=== PATIENT | female | born 1945 | race Caucasian/White ===

== ENCOUNTER → 2018-11-20 | Outpatient (CLI) | payer MEDICARE, OTHER ==
--- NOTE | 2018-11-20 17:00 | XR ---
EXAMINATION TYPE: XR chest 2V DATE OF EXAM: 11/20/2018 COMPARISON: None HISTORY: 73-year-old female with cough TECHNIQUE: Frontal and lateral views FINDINGS: Heart is normal in size. Atherosclerotic calcifications. Hyperinflation with mild diffuse interstitia l prominence. There is subtle nodularity of the right mid lung that could represent summation artifac t. Some patchy posterior basilar opacity is also noted on the lateral view. No sizable effusion. IMPRESSION: 1. COPD. There is patchy posterior basilar opacity on the lateral view that could represent atelectas is or developing pneumonia. 2. Small area of nodularity right mid lung, summation artifact versus small pulmonary nodule. Contras t-enhanced CT chest in further evaluate.
== END | disposition home or self-care (01) ==
LOC: RADXRYALE 15:13
PROVIDERS: ATTEND Physician Assistant Medical
DX: J44.9 Chronic obstructive pulmonary disease, unspecified (principal); R91.8 Other nonspecific abnormal finding of lung field
CPT/HCPCS: 71046

== ENCOUNTER → 2018-12-07 | Outpatient (CLI) | payer MEDICARE, OTHER ==
--- NOTE | 2018-12-07 15:54 | CT ---
EXAMINATION TYPE: CT chest w con DATE OF EXAM: 12/07/2018 COMPARISON: Chest x-ray dated 11/20/2018 HISTORY: Solitary pulmonary nodule. CT DLP: 109.9 mGycm. Automated Exposure Control for Dose Reduction was Utilized. TECHNIQUE: CT scan of the thorax is performed following with IV Contrast, patient injected with 80ml mL of Isovue 300. FINDINGS: LUNGS: There is mild emphysematous changes at the lung apices. There is no suspicious pulmonary nodul e or mass seen. There are scattered benign calcified granulomas within the right midlung on series 4 image 28 and 29. There is mild airspace disease in the right middle lobe with cylindrical bronchiecta sis and subtle groundglass opacity. Lingular and middle lobe bandlike pleural parenchymal scarring is noted. Punctate noncalcified 2 mm pulmonary nodule in the anterior left upper lobe on series 4 image 20 is seen. Additional calcified granuloma within the left upper lobe is present on image 27 on the left. Additional left basilar granulomas margin image 31. There is no pleural effusion or pneumothor ax seen. The tracheobronchial tree is patent. MEDIASTINUM: There are no greater than 1 cm hilar or mediastinal lymph nodes. No pericardial effusi on is seen. Moderate to severe atherosclerosis of the aortic arch and of the coronary arteries. Punc gregory hilar granulomas are benign. OTHER: On series 3 image 73 there is partial visualization of a right renal mass seen anterior latera lly that is concerning for neoplasm although only partially visualized. Pancreatic ductal prominence is seen throughout. Pancreatic head is not visualized. Remainder the pancreas enhances homogeneously. Mild degree hepatic steatosis is present as there is diffuse hypoattenuation of the hepatic parenchy ma, limiting evaluation for underlying masses. Severe atherosclerosis of the upper abdominal aorta. Minimal degenerative change of the spine and nonspecific sclerotic focus of L1. IMPRESSION: 1. On the last image, within the visualized upper abdomen there is partial visualization of a suspici ous right renal mass for which three-phase enhanced CT abdomen is recommended to exclude neoplasm. 2. Benign bilateral granulomas, likely accounting for the right midlung finding. However there is a n oncalcified 2 mm left pulmonary nodule that may represent early noncalcified granulomatous change how ever surveillance CT is recommended in 12 months to ensure no interval growth. 3. Patchy right middle lobe airspace disease likely represents atelectasis although early developing pneumonia is a possibility in the appropriate clinical setting.
== END | disposition home or self-care (01) ==
LOC: RADCTMAIN 14:00
PROVIDERS: ATTEND Family Medicine
DX: R91.1 Solitary pulmonary nodule (principal); J84.10 Pulmonary fibrosis, unspecified; J44.9 Chronic obstructive pulmonary disease, unspecified; F17.210 Nicotine dependence, cigarettes, uncomplicated; Z01.812 Encounter for preprocedural laboratory examination
CPT/HCPCS: 82565; 84520; 71260; 36415; Q9967

== ENCOUNTER → 2018-12-25 | Outpatient (CLI) | payer MEDICARE, OTHER ==
--- NOTE | 2018-12-26 08:26 | MM ---
Reason for exam: screening (asymptomatic). Last mammogram was performed 2 months ago. Physical Findings: A clinical breast exam by your physician is recommended on an annual basis and results should be correlated with mammographic findings. MG 3D Screening Mammo W/Cad Bilateral CC and MLO view(s) were taken. Prior study comparison: October 28, 2018, mammogram, performed at [facility]. The breast tissue is extremely dense which could obscure a lesion on mammography. There are benign appearing vascular calcifications bilaterally. There is no discrete abnormality. ASSESSMENT: Benign, BI-RAD 2 RECOMMENDATION: Routine screening mammogram of both breasts in 1 year.
== END | disposition home or self-care (01) ==
LOC: RADMAMWWP 07:51
PROVIDERS: ATTEND Family Medicine
DX: Z12.31 Encounter for screening mammogram for malignant neoplasm of breast (principal)
CPT/HCPCS: 77063; 77067

== ENCOUNTER → 2018-12-28 | Outpatient (CLI) | payer MEDICARE, OTHER ==
--- NOTE | 2018-12-28 12:25 | CT ---
EXAMINATION TYPE: CT abdomen pelvis w con DATE OF EXAM: 12/28/2018 COMPARISON: CT chest 12/07/2018 HISTORY: Abdnormal findings on Chest CT CT DLP: 338.9 mGycm Automated exposure control for dose reduction was used. CONTRAST: CT scan of the abdomen pelvis is performed with IV Contrast, patient injected with 100 mL of Isovue 3 00. FINDINGS- LUNG BASES-changes of mild COPD noted.. LIVER/GB- No gross abnormality is appreciated. PANCREAS- No gross abnormality is seen. SPLEEN- No gross abnormality is seen. ADRENALS- No gross abnormality is seen. KIDNEYS/BLADDER-there is a suspicious 2.3 x 2.5 cm anterior mid pole right renal mass. No hydronephro sis. No nephrolithiasis.. No involvement of the renal vein. BOWEL- no bowel dilatation. Normal appendix. LYMPH NODES- No greater than 1cm abdominal or pelvic lymph nodes areappreciated. OSSEOUS STRUCTURES-hypertrophic and degenerative changes spine. OTHER- atherosclerotic change aorta. No evidence of aneurysm. IMPRESSION- 1. Aggressive-appearing 2.3 x 2.5 cm mid pole right renal mass. No pathologic adenopathy. Renal carci noma in the differential diagnosis.
== END | disposition home or self-care (01) ==
LOC: RADCTMAIN 10:22
PROVIDERS: ATTEND Physician Assistant Medical
DX: Z01.818 Encounter for other preprocedural examination (principal); C64.9 Malignant neoplasm of unspecified kidney, except renal pelvis; N28.89 Other specified disorders of kidney and ureter; R93.41 Abnormal radiologic findings on diagnostic imaging of renal pelvis, ureter, or bladder
CPT/HCPCS: 82565; 84520; 74177; 36415; Q9967

== ENCOUNTER 2019-01-24 10:35 | Inpatient (IN) | payer MEDICARE, OTHER ==
[2019-01-24] MEDS ORDERED: SODIUM CHLORIDE 0.9% 1,000 ML IV STA ×2 (11:03)
--- NOTE | 2019-01-24 11:10 | ED ---
General Adult HPI - General Chief complaint: Weakness Stated complaint: weakness, vomiting Time Seen by Provider: 01/24/19 10:43 Source: patient, RN notes reviewed, old records reviewed Mode of arrival: wheelchair Limitations: no limitations - History of Present Illness Initial comments: 73-year-old female with a history of renal carcinoma who is scheduled to undergo right nephrectomy in 1-month-old presents emergency department today for evaluation for generalized weakness fatigue. Patient reportedly has had a cough for the past few days. Patient's daughter reports that she is scheduled to go to see her PCP today for upper a story congestion, but then Patient started to feel weak, lightheaded and had almost a fall due to weak legs so the daughter sent her in. Patient reportedly has had some chronic back pain associated with renal carcinoma but denies any fall or trauma to her lower back. Patient denies any fevers or chills. She denies any headache visual changes. She has no chest pain at this time. - Related Data Home Medications Medication Instructions Recorded Confirmed Ascorbic Acid [Vitamin C] 500 mg PO DAILY 01/24/19 01/24/19 Cholecalciferol [Vitamin D3 (25 1,000 unit PO DAILY 01/24/19 01/24/19 Mcg = 1000 Iu)] Hydrochlorothiazide [Hydrodiuril] 25 mg PO DAILY 01/24/19 01/24/19 Vitamin B Complex 1 cap PO DAILY 01/24/19 01/24/19 Allergies Allergy/AdvReac Type Severity Reaction Status Date / Time No Known Allergies Allergy Verified 01/24/19 11:15 Review of Systems ROS Statement: Those systems with pertinent positive or pertinent negative responses have been documented in the HPI. ROS Other: All systems not noted in ROS Statement are negative. Past Medical History Past Medical History: Hypertension Additional Past Medical History / Comment(s): MASS ON RIGHT KIDNEY History of Any Multi-Drug Resistant Organisms: None Reported Past Surgical History: Hysterectomy Past Psychological History: No Psychological Hx Reported Smoking Status: Current every day smoker Past Alcohol Use History: Occasional Past Drug Use History: None Reported General Exam - General Exam Comments Initial Comments: Pleasant 73-year-old female. No significant distress. Limitations: no limitations General appearance: alert, in no apparent distress Head exam: Present: atraumatic, normocephalic, normal inspection Eye exam: Present: normal appearance, PERRL, EOMI. Absent: scleral icterus, conjunctival injection, periorbital swelling ENT exam: Present: normal exam, mucous membranes moist Neck exam: Present: normal inspection. Absent: tenderness, meningismus, lymphadenopathy Respiratory exam: Present: normal lung sounds bilaterally. Absent: respiratory distress, wheezes, rales, rhonchi, stridor Cardiovascular Exam: Present: regular rate, normal rhythm, normal heart sounds. Absent: systolic murmur, diastolic murmur, rubs, gallop, clicks GI/Abdominal exam: Present: soft, normal bowel sounds. Absent: distended, tenderness, guarding, rebound, rigid Extremities exam: Present: normal inspection, full ROM, normal capillary refill. Absent: tenderness, pedal edema, joint swelling, calf tenderness Back exam: Present: normal inspection Psychiatric exam: Present: normal affect, normal mood Skin exam: Present: warm, dry, intact, normal color. Absent: rash Course Vital Signs 01/24/19 01/24/19 10:38 13:00 Temperature 98.2 F Pulse Rate 66 61 Respiratory 16 18 Rate Blood Pressure 162/76 161/55 O2 Sat by Pulse 98 98 Oximetry Medical Decision Making - Medical Decision Making Patient is a 73-year-old female who presents emergency Department today for g eneralized weakness, concern for falls and leg weakness. Patient was started on IV fluids labwork obtained. On exam she has had a 5 strength bilaterally. Patient's lab work was reviewed showing evidence of hyponatremia. Sodium of 125. The rest of her labs are unremarkable. At this time patient's scheduled to have a right nephrectomy with Dr. Ashley in the next few weeks. Urinalysis is otherwise remarkable kidney function was normal. With the hyponatremia Patient was given saline bolus and started on 100 mL's of saline an hour. She does report she likely does not drink enough. I discussed this with Dr. Tang. For patient's weakness fatigue and sodium of 125 [place] the Patient for further evaluation. - Lab Data Result diagrams: 01/24/19 11:08 01/24/19 11:08 Lab Results 01/24/19 01/24/19 01/24/19 Range/Units 11:08 11:08 11:08 WBC 7.3 (3.8-10.6) k/uL RBC 3.56 L (3.80-5.40) m/uL Hgb 12.6 (11.4-16.0) gm/dL Hct 35.3 (34.0-46.0) % MCV 99.3 (80.0-100.0) fL MCH 35.3 H (25.0-35.0) pg MCHC 35.5 (31.0-37.0) g/dL RDW 13.7 (11.5-15.5) % Plt Count 254 (150-450) k/uL Neutrophils % 70 % Lymphocytes % 19 % Monocytes % 8 % Eosinophils % 1 % Basophils % 0 % Neutrophils # 5.1 (1.3-7.7) k/uL Lymphocytes # 1.4 (1.0-4.8) k/uL Monocytes # 0.6 (0-1.0) k/uL Eosinophils # 0.0 (0-0.7) k/uL Basophils # 0.0 (0-0.2) k/uL PT (9.0-12.0) sec INR (<1.2) APTT (22.0-30.0) sec Sodium 125 L (137-145) mmol/L Potassium 3.5 (3.5-5.1) mmol/L Chloride 86 L (98-107) mmol/L Carbon Dioxide 28 (22-30) mmol/L Anion Gap 11 mmol/L BUN 11 (7-17) mg/dL Creatinine 0.59 (0.52-1.04) mg/dL Est GFR (CKD-EPI)AfAm >90 (>60 ml/min/1.73 sqM) Est GFR (CKD-EPI)NonAf >90 (>60 ml/min/1.73 sqM) Glucose 112 H (74-99) mg/dL Plasma Lactic Acid Cody 1.1 (0.7-2.0) mmol/L Calcium 8.9 (8.4-10.2) mg/dL Magnesium 2.0 (1.6-2.3) mg/dL Total Bilirubin 1.1 (0.2-1.3) mg/dL AST 24 (14-36) U/L ALT 20 (9-52) U/L Alkaline Phosphatase 74 (38-126) U/L Troponin I (0.000-0.034) ng/mL Total Protein 7.0 (6.3-8.2) g/dL Albumin 4.3 (3.5-5.0) g/dL Urine Color Urine Appearance (Clear) Urine pH (5.0-8.0) Ur Specific [place] (1.001-1.035) Urine Protein (Negative) Urine Glucose (UA) (Negative) Urine Ketones (Negative) Urine Blood (Negative) Urine Nitrite (Negative) Urine Bilirubin (Negative) Urine Urobilinogen (<2.0) mg/dL Ur Leukocyte Esterase (Negative) 01/24/19 01/24/19 01/24/19 Range/Units 11:08 11:08 11:44 WBC (3.8-10.6) k/uL RBC (3.80-5.40) m/uL Hgb (11.4-16.0) gm/dL Hct (34.0-46.0) % MCV (80.0-100.0) fL MCH (25.0-35.0) pg MCHC (31.0-37.0) g/dL RDW (11.5-15.5) % Plt Count (150-450) k/uL Neutrophils % % Lymphocytes % % Monocytes % % Eosinophils % % Basophils % % Neutrophils # (1.3-7.7) k/uL Lymphocytes # (1.0-4.8) k/uL Monocytes # (0-1.0) k/uL Eosinophils # (0-0.7) k/uL Basophils # (0-0.2) k/uL PT 9.5 (9.0-12.0) sec INR 0.9 (<1.2) APTT 27.6 (22.0-30.0) sec Sodium (137-145) mmol/L Potassium (3.5-5.1) mmol/L Chloride (98-107) mmol/L Carbon Dioxide (22-30) mmol/L Anion Gap mmol/L BUN (7-17) mg/dL Creatinine (0.52-1.04) mg/dL Est GFR (CKD-EPI)AfAm (>60 ml/min/1.73 sqM) Est GFR (CKD-EPI)NonAf (>60 ml/min/1.73 sqM) Glucose (74-99) mg/dL Plasma Lactic Acid Cody (0.7-2.0) mmol/L Calcium (8.4-10.2) mg/dL Magnesium (1.6-2.3) mg/dL Total Bilirubin (0.2-1.3) mg/dL AST (14-36) U/L ALT (9-52) U/L Alkaline Phosphatase (38-126) U/L Troponin I <0.012 (0.000-0.034) ng/mL Total Protein (6.3-8.2) g/dL Albumin (3.5-5.0) g/dL Urine Color Light Yellow Urine Appearance Clear (Clear) Urine pH 6.0 (5.0-8.0) Ur Specific [place] 1.005 (1.001-1.035) Urine Protein Negative (Negative) Urine Glucose (UA) Negative (Negative) Urine Ketones Negative (Negative) Urine Blood Negative (Negative) Urine Nitrite Negative (Negative) Urine Bilirubin Negative (Negative) Urine Urobilinogen <2.0 (<2.0) mg/dL Ur Leukocyte Esterase Negative (Negative) 01/24/19 11:15 EKG shows normal sinus rhythm normal EKG. Ventricular rate 81 bpm. Verbal is 156 ms. Frustration is 96 ms. QT QTc is 464/467 ms. - Radiology Data Radiology results: report reviewed Chest x-ray is negative for any acute pulmonary process. Suspected nodularity the right lung base. Follow-up CT of the chest was Patient is stable. Disposition Clinical Impression: Hyponatremia, Weakness Disposition: ADMITTED IP TO THIS HOSP Condition: Good Is patient prescribed a controlled substance at d/c from ED?: No Referrals: Tanmay Schwarz DO [Primary Care Provider] - 1-2 days Time of Disposition: 13:38
[2019-01-24 11:30] LABS: Basophils % (A) 0 %; Eosinophils % (A) 1 %; HCT 35.3 % (34.0-46.0); HGB 12.6 gm/dL (11.4-16.0); Lymphocytes # (A) 1.4 k/uL (1.0-4.8); Lymphocytes % (A) 19 %; MCH 35.3 pg (25.0-35.0); MCHC 35.5 g/dL (31.0-37.0); MCV 99.3 fL (80.0-100.0); Mean Platelet Volume 7.1; Monocytes # (A) 0.6 k/uL (0-1.0); Monocytes % (A) 8 %; Neutrophils # (A) 5.1 k/uL (1.3-7.7); Neutrophils % (A) 70 %; Platelet Count 254 k/uL (150-450); RBC 3.56 m/uL (3.80-5.40); RDW 13.7 % (11.5-15.5); WBC 7.3 k/uL (3.8-10.6)
--- NOTE | 2019-01-24 11:32 | XR ---
EXAMINATION TYPE: XR chest 2V DATE OF EXAM: 01/24/2019 COMPARISON: 11/20/2018 INDICATION: Weakness lower extremities TECHNIQUE: Frontal and lateral views of the chest are obtained. FINDINGS: The heart size is normal. The pulmonary vasculature is normal. Bilateral nipple shadows are evident. Superior-medial is a nodular density at the right lung base ivette suring 0.7 cm. This area does not correspond to the previous finding in November 2018. Consider CT chest f or additional evaluation.. IMPRESSION: 1. No obvious acute pulmonary process. 2. Suspected nodularity at the right lung base. Follow-up CT chest in the patient is stable is recomm ended.
[2019-01-24 11:35] LABS: ALT 20 U/L (9-52); AST 24 U/L (14-36); African American GFR (CKD) >90 (>60 ml/min/1.73 sqM); Albumin 4.3 g/dL (3.5-5.0); Alkaline Phosphatase 74 U/L (38-126); Anion Gap 11 mmol/L; Blood Urea Nitrogen 11 mg/dL (7-17); Calcium 8.9 mg/dL (8.4-10.2); Carbon Dioxide 28 mmol/L (22-30); Chloride 86 mmol/L (98-107); Glucose 112 mg/dL (74-99); Potassium 3.5 mmol/L (3.5-5.1); Sodium 125 mmol/L (137-145); Total Bilirubin 1.1 mg/dL (0.2-1.3)
[2019-01-24 11:40] LABS: INR 0.9 (<1.2); Partial Thromboplastin Time 27.6 sec (22.0-30.0); Prothrombin Time 9.5 sec (9.0-12.0)
[2019-01-24 12:00] LABS: Appearance,Urine Clear (Clear); Bilirubin,Urine Negative (Negative); Blood,Urine Negative (Negative); Color,Urine Light Yellow; Glucose,Urine (UA) Negative (Negative); Ketones,Urine Negative (Negative); Leukocyte Esterase,Urine Negative (Negative); Nitrite,Urine Negative (Negative); Protein,Urine Negative (Negative); Specific Gravity,Urine 1.005 (1.001-1.035); Urobilinogen,Urine <2.0 mg/dL (<2.0)
[2019-01-24] MEDS ORDERED: MORPHINE SULFATE 4 MG/ML SYRINGE IV PRN (13:39)
[2019-01-24] MEDS ORDERED: IBUPROFEN 400 MG TAB PO PRN (13:39)
[2019-01-24] MEDS ORDERED: ONDANSETRON 4 MG/2 ML VIAL IVP PRN (13:39)
[2019-01-24] MEDS ORDERED: NALOXONE 0.4 MG/ML 1 ML VIAL IV PRN (13:39)
[2019-01-24] MEDS ORDERED: ACETAMINOPHEN TAB 325 MG TAB PO PRN (13:39)
[2019-01-24] MEDS ORDERED: Acetaminophen-Codeine 300-30mg TAB PO PRN (13:39)
--- NOTE | 2019-01-24 15:20 | P.HPIM ---
History of Present Illness Chief Complaint: Weakness and dizziness This very pleasant 73-year-old female who is scheduled to undergo right nephrec derick on of this month comes in for above-mentioned complaint. The patient says that she recently came back from [place] she said that she's been walking a lot and traveling a lot on foot. She walked a lot yesterday. She started feeling weak and pain in her legs and felt lightheaded and dizzy. The daughter just wanted to get it checked out so the patient came into the ER for further urology management. The patient says that she is probably not keeping up with her fluids as much as she needs to. She otherwise does not complain of any chest pain racing heart, no cough no shortness breath, no abdominal pain, nausea and vomiting, no diarrhea constipation, no tingling numbness on in the extremities, no itch no rash. Next ER course-temperature 98.2 pulse 66 respirations 16 blood pressure 162/76 satting 98% on room air. Labwork done in the ER showed WAC 7.3 hemoglobin 12.6 platelets 254 sodium 144 potassium 3.5 chloride 86 BUN 11 creatinine 0.59 GFR more than 90 urinalysis is negative. Chest x-ray done in the ER showed no acute bony process but suspect or nodularity and suggested follow-up CAT scan. EKG shows normal sinus rhythm. Patient was given IV fluids and admitted to the hospitalist service a further evaluation and management. Review of Systems All systems: negative Past Medical History Past Medical History: Hypertension Additional Past Medical History / Comment(s): MASS ON RIGHT KIDNEY History of Any Multi-Drug Resistant Organisms: None Reported Past Surgical History: Hysterectomy Past Psychological History: No Psychological Hx Reported Smoking Status: Current every day smoker Past Alcohol Use History: Occasional Past Drug Use History: None Reported Medications and Allergies Home Medications Medication Instructions Recorded Confirmed Type Ascorbic Acid [Vitamin C] 500 mg PO DAILY 01/24/19 01/24/19 History Cholecalciferol [Vitamin D3 (25 1,000 unit PO DAILY 01/24/19 01/24/19 History Mcg = 1000 Iu)] Hydrochlorothiazide [Hydrodiuril] 25 mg PO DAILY 01/24/19 01/24/19 History Vitamin B Complex 1 cap PO DAILY 01/24/19 01/24/19 History Allergies Allergy/AdvReac Type Severity Reaction Status Date / Time No Known Allergies Allergy Verified 01/24/19 11:15 Physical Exam Vitals: Vital Signs Temp Pulse Resp BP Pulse Ox 01/24/19 13:00 61 18 161/55 98 01/24/19 10:38 98.2 F 66 16 162/76 98 Intake and Output 01/24/19 01/24/19 01/24/19 06:59 14:59 22:59 Other: Weight 49.895 kg - Weakness - Hyponatremia - History of renal mass patient undergo nephrectomy - Hypertension - Hyperlipidemia - Diabetes Plan - We'll admit the patient to [facility] telemetry under observation - We'll continue IV fluids - The patient looks like she is little bit dehydrated as she was in [place] and was not keeping up with the fluids - We'll recheck the labs in the morning - We'll continue the patient's home medications - DVT and GI prophylaxis - We'll order for lab work in the morning - Patient is full code Results CBC & Chem 7: 01/24/19 11:08 01/24/19 11:08 Labs: Abnormal Lab Results - Last 24 Hours (Table) 01/24/19 01/24/19 Range/Units 11:08 11:08 RBC 3.56 L (3.80-5.40) m/uL MCH 35.3 H (25.0-35.0) pg Sodium 125 L (137-145) mmol/L Chloride 86 L (98-107) mmol/L Glucose 112 H (74-99) mg/dL
[2019-01-24 15:29] VITALS: BMI 18.8
[2019-01-24] MEDS: SODIUM CHLORIDE 0.9% 1,000 ML IV SCH (16:54)
[2019-01-25 00:13] VITALS: RESP 18
[2019-01-25] MEDS: SODIUM CHLORIDE 0.9% 1,000 ML IV SCH ×2 (00:28→07:44)
[2019-01-25 01:59] LABS: Creatinine,Urine Random 22.8 mg/dL
[2019-01-25 05:46] VITALS: BP 155/74; PULSE 63; TEMP 98.4
[2019-01-25 08:06] LABS: HCT 33.5 % (34.0-46.0); HGB 11.2 gm/dL (11.4-16.0); MCH 34.3 pg (25.0-35.0); MCHC 33.5 g/dL (31.0-37.0); MCV 102.6 fL (80.0-100.0); Macrocytosis Slight; Mean Platelet Volume 6.6; Platelet Count 240 k/uL (150-450); RBC 3.26 m/uL (3.80-5.40); RDW 12.4 % (11.5-15.5); WBC 6.9 k/uL (3.8-10.6)
[2019-01-25 08:32] LABS: African American GFR (CKD) >90 (>60 ml/min/1.73 sqM); Anion Gap 6 mmol/L; Blood Urea Nitrogen 7 mg/dL (7-17); Calcium 8.4 mg/dL (8.4-10.2); Carbon Dioxide 30 mmol/L (22-30); Chloride 96 mmol/L (98-107); Glucose 96 mg/dL (74-99); Potassium 3.4 mmol/L (3.5-5.1); Sodium 132 mmol/L (137-145)
[2019-01-25] MEDS ORDERED: HYDROCHLOROTHIAZIDE 25 MG TAB PO SCH (09:00)
[2019-01-25] MEDS ORDERED: NON-FORMULARY DRUG (Vitamin B Complex [Vitamin B Complex] 1 CAP) PO SCH (09:00)
[2019-01-25] MEDS ORDERED: PANTOPRAZOLE 40 MG/10 ML VIAL IV SCH (09:00)
[2019-01-25] MEDS ORDERED: CHOLECALCIFEROL 1,000 UNIT TAB PO SCH (09:00)
[2019-01-25] MEDS ORDERED: ASCORBIC ACID 500 MG TAB PO SCH (09:00)
--- NOTE | 2019-01-25 10:38 | P.DS ---
Providers Date of admission: 01/24/19 13:03 Expected date of discharge: 01/25/19 Attending physician: Mundo Bates [facility] Course: Discharge diagnosis - Weakness - Hyponatremia - History of renal mass patient undergo nephrectomy - Hypertension - Hyperlipidemia - Diabetes Hospital course This very pleasant 73-year-old female who is scheduled to undergo right nephrectomy on of this month comes in for above-mentioned complaint. The patient says that she recently came back from [place] she said that she's been walking a lot and traveling a lot on foot. She walked a lot yesterday. She s tarted feeling weak and pain in her legs and felt lightheaded and dizzy. The daughter just wanted to get it checked out so the patient came into the ER for further urology management. The patient says that she is probably not keeping up with her fluids as much as she needs to. She otherwise does not complain of any chest pain racing heart, no cough no shortness breath, no abdominal pain, nausea and vomiting, no diarrhea constipation, no tingling numbness on in the extremities, no itch no rash. On 01/25/2019 Her sodium level is almost back to normal at 132 She is feeling much better, no lightheadedness no dizziness, no chest pain or racing heart, no cough no shortness of breath no headache, no loss of vision or blurry vision On exam, alert and oriented x3. HEENT: Conjunctivae normal. eyes normal. NECK: No JVD. No thyroid enlargement. No LNs CARDIOVASCULAR: S1, S2 muffled. No murmur RESPIRATION: Breath sounds diminished in the bases. No rhonchi or crackles. No bronchial breathing. ABDOMEN: Soft, nontender . No guarding. no masses palpable. No ascites, No hepatosplenomegaly.Bowel sounds heard. LEGS: No edema. no swelling NERVOUS SYSTEM: Cranial N 2-12 grossly normal. Moves all 4 limbs. No focal deficits. No sensory deficit. No signs of cerebellar dysfucntion. Skin: no ulcer no rash Joints: No active swelling. No inflammation. Lymphatic system. No LN neck axilla or groin. Patient's HCTZ is on hold as she came in with hyponatremia and possible dehydration. Her blood pressure was slightly on the higher side so she was started on Norvasc 5 mg daily from now. Patient to follow with the primary care doctor to see hydrochlorothiazide needs to be continued ON hold and adjusting the blood pressure medication in accordance with the blood pressure Patient Condition at Discharge: Good Plan - Discharge Summary Discharge Rx Participant: No New Discharge Prescriptions: Continue Vitamin B Complex 1 cap PO DAILY Cholecalciferol [Vitamin D3 (25 Mcg = 1000 Iu)] 1,000 unit PO DAILY Ascorbic Acid [Vitamin C] 500 mg PO DAILY Discontinued Hydrochlorothiazide [Hydrodiuril] 25 mg PO DAILY Discharge Medication List Ascorbic Acid [Vitamin C] 500 mg PO DAILY 01/24/19 [History] Cholecalciferol [Vitamin D3 (25 Mcg = 1000 Iu)] 1,000 unit PO DAILY 01/24/19 [History] Vitamin B Complex 1 cap PO DAILY 01/24/19 [History] Follow up Appointment(s)/Referral(s): Tanmay Schwarz DO [Primary Care Provider] - 1-2 days Ambulatory/Diagnostic Orders: Basic Metabolic Panel [LAB.AMB] Time Frame: 2 Days, Location: None Selected Activity/Diet/Wound Care/Special Instructions: If she started to have any more lightheadedness or dizziness, any loss of vision or blurry vision, any syncopal episodes, any chest pain racing heart, cough or shortness of breath, no abdominal pain, any nausea vomiting, any diarrhea constipation, any loss of vision or blurry vision, please call 911 and come to the ER Please hold off on the hydrochlorothiazide. Follow up with your primary care doctor to see if it needs to be restarted back or substituted with another blood pressure medication Discharge Disposition: HOME SELF-CARE
[2019-01-25] MEDS ORDERED: amLODIPine 5 MG TAB PO STA (10:39)
== END 2019-01-25 11:01 | disposition home or self-care (01) | DRG 641 ==
LOC: EC 10:35 → 4MS4W 13:03
PROVIDERS: ADMIT Hospitalist; ATTEND Hospitalist
DX: E87.1 Hypo-osmolality and hyponatremia (principal); C64.9 Malignant neoplasm of unspecified kidney, except renal pelvis; E86.0 Dehydration; E11.9 Type 2 diabetes mellitus without complications; E78.5 Hyperlipidemia, unspecified; R53.1 Weakness; F17.200 Nicotine dependence, unspecified, uncomplicated; I10 Essential (primary) hypertension; G89.3 Neoplasm related pain (acute) (chronic); Z79.899 Other long term (current) drug therapy; Z90.710 Acquired absence of both cervix and uterus
CPT/HCPCS: 36415; 71046; 80048; 80053; 81003; 82570; 83605; 83735; 83930; 83935; 84300; 84484; 85025; 85027; 85610; 85730; 87086; 93005; 96360; 96361; 99285

== ENCOUNTER → 2019-01-31 | Outpatient (CLI) | payer MEDICARE, OTHER ==
[2019-01-31 10:38] LABS: Basophils % (A) 1 %; Eosinophils # (A) 0.1 k/uL (0-0.7); Eosinophils % (A) 1 %; HCT 38.6 % (34.0-46.0); HGB 12.3 gm/dL (11.4-16.0); Lymphocytes # (A) 1.7 k/uL (1.0-4.8); Lymphocytes % (A) 27 %; MCH 33.3 pg (25.0-35.0); MCHC 31.9 g/dL (31.0-37.0); MCV 104.6 fL (80.0-100.0); Macrocytosis Slight; Mean Platelet Volume 6.7; Monocytes # (A) 0.4 k/uL (0-1.0); Monocytes % (A) 6 %; Neutrophils % (A) 63 %; Platelet Count 376 k/uL (150-450); RBC 3.69 m/uL (3.80-5.40); RDW 12.5 % (11.5-15.5); WBC 6.3 k/uL (3.8-10.6)
[2019-01-31 11:07] LABS: Albumin 4.2 g/dL (3.5-5.0); Calcium 9.6 mg/dL (8.4-10.2); Total Bilirubin 0.4 mg/dL (0.2-1.3); Total Protein 6.8 g/dL (6.3-8.2)
[2019-01-31 11:09] LABS: Appearance,Urine Clear (Clear); Bilirubin,Urine Negative (Negative); Blood,Urine Negative (Negative); Color,Urine Yellow; Glucose,Urine (UA) Negative (Negative); Ketones,Urine Negative (Negative); Leukocyte Esterase,Urine Negative (Negative); Nitrite,Urine Negative (Negative); PH, Urine 5.5 (5.0-8.0); Protein,Urine Negative (Negative); Specific Gravity,Urine 1.012 (1.001-1.035); Urobilinogen,Urine <2.0 mg/dL (<2.0)
== END | disposition home or self-care (01) ==
LOC: LABPAT 10:12
PROVIDERS: ATTEND Urology
DX: Z01.812 Encounter for preprocedural laboratory examination (principal); C64.1 Malignant neoplasm of right kidney, except renal pelvis
CPT/HCPCS: 36415; 80053; 81003; 85025; 87086

== ENCOUNTER 2019-02-07 05:59 | Inpatient (IN) | payer MEDICARE, OTHER ==
--- NOTE | 2019-02-06 06:58 | P.GSHP ---
History of Present Illness H&P Date: 02/06/19 73 yo female with a 3.5 cm deep right renal mass c/w renal cell carcinoma found on ct scan done for f/u of her copd,who comes for a right radical nephrectomy Alternatives have been discussed The risks and complications have been discussed - Constitutional Constitutional: Denies chills, Denies fever - EENT Eyes: denies blurred vision, denies pain Ears, nose, mouth and throat: Denies headache, Denies sore throat - Cardiovascular Cardiovascular: Denies chest pain, Denies shortness of breath - Respiratory Respiratory: Denies cough, Denies 7 - Gastrointestinal Gastrointestinal: Denies abdominal pain, Denies diarrhea, Denies nausea, Denies vomiting - Genitourinary (Female) Genitourinary: Denies dysuria, Denies hematuria - Genitourinary (Male) Genitourinary: Denies dysuria, Denies hematuria - Musculoskeletal Musculoskeletal: Denies myalgias - Integumentary Integumentary: Denies pruritus, Denies rash - Neurological Neurological: Denies numbness, Denies weakness - Psychiatric Psychiatric: Denies anxiety, Denies depression - Endocrine Endocrine: Denies fatigue, Denies weight change Past Medical History Past Medical History: Hypertension Additional Past Medical History / Comment(s): RIGHT RENAL MASS History of Any Multi-Drug Resistant Organisms: None Reported Past Surgical History: Hysterectomy Past Anesthesia/Blood Transfusion Reactions: No Reported Reaction Past Psychological History: No Psychological Hx Reported Smoking Status: Current every day smoker Past Alcohol Use History: Occasional Additional Past Alcohol Use History / Comment(s): 1ppd from teens, Past Drug Use History: None Reported - Past Family History Mother Additional Family Medical History / Comment(s): KIDNEY MASS Father Family Medical History: Cancer Additional Family Medical History / Comment(s): LUNG Sister(s) Family Medical History: Cancer Additional Family Medical History / Comment(s): KIDNEY Medications and Allergies Home Medications Medication Instructions Recorded Confirmed Type Ascorbic Acid [Vitamin C] 500 mg PO DAILY 01/24/19 02/02/19 History Cholecalciferol [Vitamin D3 (25 1,000 unit PO DAILY 01/24/19 02/02/19 History Mcg = 1000 Iu)] Vitamin B Complex 1 cap PO DAILY 01/24/19 02/02/19 History [place]-3 Fatty Acids/Fish Oil [Fish 1 each PO DAILY 02/02/19 02/02/19 History Oil 1,000 mg Softgel] amLODIPine [Norvasc] 5 mg PO QAM 02/02/19 02/02/19 History Allergies Allergy/AdvReac Type Severity Reaction Status Date / Time No Known Allergies Allergy Verified 02/02/19 08:44 Surgical - Exam - General well developed, well nourished, no distress - Eyes PERRL - ENT no hearing loss - Neck no masses, trachea midline - Respiratory normal expansion, normal respiratory effort - Cardiovascular Rhythm: regular - Abdomen Abdomen: soft, non tender - Neurologic normal coordination, normal sensation - Musculoskeletal normal gait, normal posture - Psychiatric oriented to time, oriented to person, oriented to place, speech is normal, memory intact Results - Imaging CT scan - abdomen: report reviewed, image reviewed CT scan - pelvis: report reviewed, image reviewed Assessment and Plan Assessment: Impression: Right renal mass c/w renal cell carcinoma Plan: RIght radical nephrectomy
[~2019-02-07 05:59] MED LIST: DEXAMETHASONE SOD PHOSPHATE 10 MG/ML 1 ML VIAL IV ONE; HYDROmorphone 0.5 MG/0.5 ML SYRINGE IVP PRN; LIDOCAINE 1% 20 ML VIAL (10MG/ML) FOR IV START INTRADERMA PRN; ONDANSETRON 4 MG/2 ML VIAL IVP ONE; ONDANSETRON 4 MG/2 ML VIAL IVP PRN
[2019-02-07] MEDS: LACTATED RINGERS 1,000 ML IV SCH (06:48)
[2019-02-07] MEDS ORDERED: MIDAZOLAM (PF) 2 MG/2 ML VIAL IV ONE (07:02)
[2019-02-07] MEDS ORDERED: LIDOCAINE 1% INJ 10MG/ML (20 ML MDV) ONE (07:18)
[2019-02-07] MEDS ORDERED: SUCCINYLCHOLINE CHLORIDE 100 MG/5 ML SYR IV ONE (07:18)
[2019-02-07] MEDS ORDERED: ROCURONIUM BROMIDE 10 MG/ML 10 ML VIAL IV ONE (07:18)
[2019-02-07] MEDS ORDERED: fentaNYL (PF) 50 MCG/ML 2 ML AMP ONE (07:18)
[2019-02-07] MEDS ORDERED: PROPOFOL 10 MG/ML 20 ML VIAL IV ONE (07:18)
[2019-02-07] MEDS ORDERED: PHENYLEPHRINE-0.9% NACL SYG 1 MG/10 ML SYRINGE ONE (07:18)
[2019-02-07] MEDS ORDERED: ePHEDrine SULFATE/0.9% NACL/PF 50 MG/5 ML SYRINGE IV ONE (07:18)
[2019-02-07] MEDS ORDERED: NALBUPHINE 10 MG/ML (1 ML AMP) IV PRN (07:51)
[2019-02-07] MEDS ORDERED: NALOXONE 0.4 MG/ML 1 ML VIAL IV PRN (07:51)
[2019-02-07] MEDS ORDERED: ROPIVACAINE 400 MG, HYDROMORPHONE (PF) 5 MG in SODIUM CHLORIDE 0.9% 170 ML EPIDURAL PRN (07:51)
[2019-02-07] MEDS ORDERED: diphenhydrAMINE 50 MG/ML 1 ML VIAL IVP PRN (07:51)
--- NOTE | 2019-02-07 09:11 | P.OP ---
Date of Procedure: 02/07/19 Preoperative Diagnosis: Right renal mass Postoperative Diagnosis: Same Procedure(s) Performed: Right radical nephrectomy Anesthesia: GETA, epidural Surgeon: Johnathon Man Estimated Blood Loss (ml): 25 Pathology: other (Kidney) Condition: stable Disposition: PACU Indications for Procedure: The patient is 73. She had some abdominal discomfort and a computed tomography scan of abdomen identified a 4 cm solid mass in her right kidney worrisome for kidney cancer. We've discussed all the treatment options she come for a right radical nephrectomy Description of Procedure: Patient is brought to the operating suite. She is given epidural followed by general endotracheal anesthesia. She has a Alves catheter placed sterilely. She is prepped and draped sterilely. A right subcostal incision is made. The rectus and oblique fascias are opened. The peritoneum was opened. The liver is inspected is normal. After adequate retraction I reflect the colon and then the duodenum medially exposing the vena cava kidney and liver. I incised the connective tissue over the vena cava inferiorly to above the renal vein. I cleaned off the renal vein place a 2-0 silk tie around this. Right renal arteries identified posterior to the renal vein. The 2-0 silk ties placed on around this. It is doubly tied and then ligated.. There is a second branch identified and ligated all also using 2-0 silk ties. I then doubly tying ligate the right renal vein. I then cleaned the lymph [place] tissue off the psoas muscle and reflected with the kidney and drug's fascia. In September inferior to the kidney introitus and take the ureter between hemoclips. I then tied the gonadal vein between 2-0 silk ties and transected. I then elevate the kidney off the posterior and lateral body wall. I reflect the inguinal lymph [place] tissue along the cava above the renal vein medially. Dissection the adrenal gland sparing it and clipping the adrenal veins. I then deliver the kidney from the wound. There is minimal bleeding at best. There is no bleeding remaining. A tumorous felt anteriorly and deep into the kidney and the upper pole. The bowels lateral to fall back in the right upper quadrant. The wounds closed with 3 layers and #1 Vicryl. The skin is stapled. The patient's awake and returned recovery room good condition. Blood loss is approximately 25 mL.
[2019-02-07] MEDS: DEXTROSE 5%-0.45% NACL 1,000 ML IV SCH ×2 (18:39→22:53)
[2019-02-08] MEDS: DEXTROSE 5%-0.45% NACL 1,000 ML IV SCH ×2 (05:14→14:44)
[2019-02-08] MEDS: LACTATED RINGERS 1,000 ML IV SCH (05:15)
--- NOTE | 2019-02-08 06:24 | P.PN ---
Subjective Progress Note Date: 02/08/19 The patient is in her first postoperative day from a right radical nephrectomy. Her vital signs are stable. Her urine output is good. She is awake alert and comfortable. Her abdomen is soft. The dressing is dry. She is hungry. I will ambulate the patient. I will advance her diet. I will continue with epidural and IV fluids. Objective - Vital Signs Vital signs: Vital Signs Temp 98.0 F 02/08/19 00:03 Pulse 68 02/08/19 00:03 Resp 16 02/08/19 00:03 BP 129/70 02/08/19 00:03 Pulse Ox 99 02/08/19 00:03 Intake & Output 02/07/19 02/07/19 02/08/19 06:59 18:59 06:59 Intake Total 200 1380 4200 Output Total 250 4200 Balance 200 1130 0 Intake: IV 200 650 Intake, IV Titration 250 Amount Dextrose 5%-0.45% NaCl 1, 250 000 ml @ 100 mls/hr IV . Q10H [facility] Rx#:[id number] Oral 480 4200 Output: Urine 200 4200 Uretheral (Alves) 1200 Estimated Blood Loss 50 Other: Voiding Method Indwelling Catheter Indwelling Catheter
[2019-02-08] MEDS: amLODIPine 5 MG TAB PO SCH (08:13)
--- NOTE | 2019-02-08 11:46 | P.PN ---
Progress Note - Text Anesthesia POD 1. Status Post right radical nephrectomy under general endotracheal anesthesia with an epidrual catheter placed at T10 for post surgical pain releif. VAS (1, 3) with Ropivicaine 0.16 % and Dilaudid 20 mcg / cc running at 5 cc / hr. Lower extremity strength (4/4). [] sedation. Site looks OK.
[2019-02-08 12:34] LABS: Calcium 8.5 mg/dL (8.4-10.2); Potassium 4.5 mmol/L (3.5-5.1)
[2019-02-08 16:25] VITALS: BMI 18.8
[2019-02-09] MEDS: DEXTROSE 5%-0.45% NACL 1,000 ML IV SCH ×3 (02:45→20:53)
--- NOTE | 2019-02-09 07:14 | P.PN ---
Subjective Progress Note Date: 02/09/19 The patient is in her second postoperative day from a right radical nephrectomy. Her vital signs are stable. Her urine output is good. Creatinine is 1.07. Her abdomen is soft. Her wound looks good. She is comfortable. I will discontinue her epidural. I will discontinue her Alves. We'll plan on di kalyn this weekend. Objective - Vital Signs Vital signs: Vital Signs Temp 99.3 F 02/09/19 02:28 Pulse 65 02/09/19 02:28 Resp 18 02/09/19 02:28 BP 141/67 02/09/19 02:28 Pulse Ox 93 L 02/09/19 02:28 Intake & Output 02/08/19 02/09/19 02/09/19 18:59 06:59 18:59 Intake Total 500 700 Output Total 4000 3600 Balance -3500 -2900 Weight 49.895 kg Intake: Oral 500 700 Output: Urine 4000 3600 Other: Voiding Method Indwelling Catheter Indwelling Catheter - Labs CBC & Chem 7: 02/08/19 12:11 Labs: Abnormal Lab Results - Last 24 Hours (Table) 02/08/19 Range/Units 12:11 Sodium 126 L (137-145) mmol/L Chloride 96 L (98-107) mmol/L Creatinine 1.07 H (0.52-1.04) mg/dL
--- NOTE | 2019-02-09 08:33 | P.PN ---
Progress Note - Text 02/09 715am 73-year-old female status post radical nephrectomy by Dr. Man. Postop day #2 patient has an epidural catheter for postop pain control the solution running at 6 mL an hour with no sensory or motor deficit with a VAS of. Plan to DC epidural
[2019-02-09] MEDS: amLODIPine 5 MG TAB PO SCH (09:27)
[2019-02-09] MEDS: HYDROcodone/APAP 5-325MG 1 EACH TAB PO PRN ×4 (09:27→20:44)
[2019-02-09] MEDS ORDERED: diphenhydrAMINE 25 MG CAP PO PRN (13:57)
[2019-02-09] MEDS ORDERED: DOCUSATE 100 MG CAP PO PRN (17:42)
[2019-02-09] MEDS: LACTATED RINGERS 1,000 ML IV SCH (18:47)
[2019-02-09] MEDS: MAGNESIUM HYDROXIDE 2,400 MG/10 ML CUP PO SCH (20:43)
[2019-02-10] MEDS: HYDROcodone/APAP 5-325MG 1 EACH TAB PO PRN ×4 (01:55→13:12)
[2019-02-10] MEDS: LACTATED RINGERS 1,000 ML IV SCH (02:54)
[2019-02-10 03:11] VITALS: RESP 16
--- NOTE | 2019-02-10 06:24 | P.DS ---
Providers Date of admission: 02/07/19 05:59 Expected date of discharge: 02/10/19 Attending physician: Johnathon Man Primary care physician: [facility] Course: On the day of admission, the patient underwent an uncomplicated right radical nephrectomy. The perioperative course was unremarkable. The epidural catheter and Alves catheter were removed on the second postoperative day. She was ambulating to the bathroom, but not in the hallway. She was tolerating diet. She denied nausea, chest pain, and dyspnea. Her pain was controlled with [place]. Vital signs were stable. On examination, the abdomen was noted to be soft and non-distended. The incision was clean and dry. Procedures: Right radical nephrectomy on 02/07/2019. Patient Condition at Discharge: Good Plan - Discharge Summary Discharge Rx Participant: Yes New Discharge Prescriptions: New Hydrocodone/Acetaminophen [[place] 5-325] 1 - 2 each PO Q4HR PRN #10 tab PRN Reason: Pain No Action Vitamin B Complex 1 cap PO DAILY Cholecalciferol [Vitamin D3 (25 Mcg = 1000 Iu)] 1,000 unit PO DAILY Ascorbic Acid [Vitamin C] 500 mg PO DAILY [place]-3 Fatty Acids/Fish Oil [Fish Oil 1,000 mg Softgel] 1 cap PO DAILY amLODIPine [Norvasc] 5 mg PO QAM Discharge Medication List Ascorbic Acid [Vitamin C] 500 mg PO DAILY 01/24/19 [History] Cholecalciferol [Vitamin D3 (25 Mcg = 1000 Iu)] 1,000 unit PO DAILY 01/24/19 [History] Vitamin B Complex 1 cap PO DAILY 01/24/19 [History] [place]-3 Fatty Acids/Fish Oil [Fish Oil 1,000 mg Softgel] 1 cap PO DAILY 02/02/19 [History] amLODIPine [Norvasc] 5 mg PO QAM 02/02/19 [History] Hydrocodone/Acetaminophen [[place] 5-325] 1 - 2 each PO Q4HR PRN #10 tab 02/10/19 [Rx] Follow up Appointment(s)/Referral(s): [facility], [NON-STAFF] - As Needed Johnathon Man MD [STAFF PHYSICIAN] - 02/15/19 8:20 am Activity/Diet/Wound Care/Special Instructions: Diet as tolerated. Okay to shower. No lifting, driving, or strenuous activity. Discharge Disposition: HOME SELF-CARE
[2019-02-10] MEDS: MAGNESIUM HYDROXIDE 2,400 MG/10 ML CUP PO SCH (08:51)
[2019-02-10] MEDS: amLODIPine 5 MG TAB PO SCH (08:52)
[2019-02-10 09:40] VITALS: BP 164/71; PULSE 81; TEMP 98.3
== END 2019-02-10 13:20 | disposition home or self-care (01) | DRG 658 ==
LOC: 2ORMAIN 05:59 → 4SSUR 08:55
PROVIDERS: ADMIT Urology; ATTEND Urology
PROC: 0TT00ZZ Resection of Right Kidney, Open Approach (ICD-10-PCS; principal; 2019-02-07 07:30)
DX: C64.1 Malignant neoplasm of right kidney, except renal pelvis (principal); F17.210 Nicotine dependence, cigarettes, uncomplicated; I10 Essential (primary) hypertension; J44.9 Chronic obstructive pulmonary disease, unspecified; Z90.710 Acquired absence of both cervix and uterus; Z80.1 Family history of malignant neoplasm of trachea, bronchus and lung; Z80.51 Family history of malignant neoplasm of kidney; Z79.899 Other long term (current) drug therapy
CPT/HCPCS: 80048; 86850; 86900; 86901; 88307

== ENCOUNTER → 2021-01-23 | Outpatient (CLI) | payer MEDICARE, OTHER ==
--- NOTE | 2021-01-23 12:36 | CT ---
EXAMINATION TYPE: CT abdomen pelvis wo con DATE OF EXAM: 01/23/2021 COMPARISON: 12/28/2018 HISTORY: Renal cancer CT DLP: 536 mGycm Automated exposure control for dose reduction was used. TECHNIQUE: Helical acquisition of images was performed from the lung bases through the pelvis. FINDINGS: LUNG BASES: Emphysematous changes are noted LIVER/GB: No significant abnormality is appreciated. PANCREAS: No significant abnormality is seen. SPLEEN: No significant abnormality is seen. ADRENALS: No significant abnormality is seen. KIDNEYS: Post right nephrectomy changes are seen with no evidence of residual or recurrent neoplasm. Left kidney demonstrates a homogeneous appearance by noncontrast technique with no hydronephrosis or nephrolithiasis. ADENOPATHY: None visualized. OSSEOUS STRUCTURES: No significant abnormality is seen. BOWEL: Bowel gas pattern nonspecific. Prominent air within the sigmoid colon noted which likely is t ransient. OTHER: Aorta of normal caliber with atherosclerotic changes. IMPRESSION: 1. Post right nephrectomy changes with no evidence of recurrent or residual neoplasm. 2. COPD
== END | disposition home or self-care (01) ==
LOC: RADCTMAIN 11:42
PROVIDERS: ATTEND Urology
DX: J44.9 Chronic obstructive pulmonary disease, unspecified (principal); C64.1 Malignant neoplasm of right kidney, except renal pelvis; Z90.5 Acquired absence of kidney
CPT/HCPCS: 74176

== ENCOUNTER → 2021-04-03 | Outpatient (CLI) | payer MEDICARE, OTHER ==
--- NOTE | 2021-04-07 08:25 | MM ---
Reason for exam: screening (asymptomatic). Last mammogram was performed 2 years and 3 months ago. History: Patient has history of other cancer at age 73. Physical Findings: A clinical breast exam by your physician is recommended on an annual basis and results should be correlated with mammographic findings. MG 3D Screening Mammo W/Cad Bilateral CC and MLO view(s) were taken. Prior study comparison: December 25, 2018, bilateral MG 3d screening mammo w/cad. The breast tissue is heterogeneously dense. This may lower the sensitivity of mammography. No significant changes when compared with prior studies. ASSESSMENT: Benign, BI-RAD 2 RECOMMENDATION: Routine screening mammogram of both breasts in 1 year.
== END | disposition home or self-care (01) ==
LOC: RADMAMWWP 16:03
PROVIDERS: ATTEND Family Medicine
DX: Z12.31 Encounter for screening mammogram for malignant neoplasm of breast (principal)
CPT/HCPCS: 77063; 77067

== ENCOUNTER → 2023-02-03 | Outpatient (CLI) | payer MEDICARE ==
--- NOTE | 2023-02-04 19:00 | MM ---
Reason for Exam: Screening (asymptomatic). Last mammogram was performed 1 year(s) and 10 month(s) ago. Patient History: Menarche at age 14. First Full-Term at age 19. Hysterectomy at age 29. Other cancer, age 73. Risk Values: Juliana 5 year model risk: 1.4%. NCI Lifetime model risk: 2.5%. Prior Study Comparison: 10/28/2018 Screening Mammogram, [facility]. 12/25/2018 Bilateral Screening Mammogram, [facility]. 04/03/2021 Bilateral Screening Mammogram, [facility]. Tissue Density: The breast tissue is heterogeneously dense. This may lower the sensitivity of mammography. Findings: Analyzed By CAD. Benign bilateral vascular calcifications. There is no suspicious group of microcalcifications or new suspicious mass in either breast. Overall Assessment: Negative, BI-RAD 1 Management: Screening Mammogram of both breasts in 1 year. . Patient should continue monthly self-breast exams. A clinical breast exam by your physician is recommended on an annual basis. This exam should not preclude additional follow-up of suspicious palpable abnormalities. Note on Juliana scores and lifetime risk: 1. A Juliana score greater than 3% is considered moderate risk. If this is the case, consider specialist referral to assess eligibility for a risk reducing agent. 2. If overall lifetime risk for the development of breast cancer is 20% or higher, the patient may qualify for future screening with alternating mammogram and breast MRI. Electronically signed and approved by: Elgin Awad M.D. Radiologist
== END | disposition home or self-care (01) ==
LOC: RADMAMWWP 09:20
PROVIDERS: ATTEND Family Medicine
DX: Z12.31 Encounter for screening mammogram for malignant neoplasm of breast (principal)
CPT/HCPCS: 77063; 77067

== ENCOUNTER → 2023-02-22 | Outpatient (CLI) | payer MEDICARE ==
--- NOTE | 2023-02-22 10:51 | BD ---
EXAMINATION TYPE: Axial Bone Density DATE OF EXAM: 02/22/2023 CLINICAL HISTORY: 77 years old Female. ICD-10 CODE: M85.9 Height: 63 Weight: 119.5 FRAX RISK QUESTIONS: Alcohol (3 or more units per day): no Family History (Parent hip fracture): no Glucocorticoids (More than 3mos): no History of Fracture in Adulthood: no Secondary Osteoporosis: 1. Type 1 Diabetes: no 2. Hyperthyroidism: no 3. Menopause before 45: no 4. Malnutrition: no 5. Chronic liver disease: no Rheumatoid Arthritis: no Current Tobacco Use: yes RISK FACTORS HISTORY OF: Hip Fracture (Right/Left): no Spine Fracture: no History of Wrist Fracture: no Surgery to Spine/Hip(right/left)/Wrist (right/left): no Family History of Osteoporosis: no Active: yes Diet low in dairy products/other sources of calcium: yes Postmenopausal woman: yes Take estrogen and/or progesterone medications: no Lost more than 2 inches in height since high school: no Frequent falls: no Poor Health: no Hyperparathyroidism: no Adrenal Insufficiency: no MEDICATIONS: Prednisone or other steroids: no Thyroid Medications: no Osteoporosis Medications: no Additional Medications: BP Meds, Vit D, Fish Oil, Multi Vit Additional History: Kidney Ca. 2019 EXAM MEASUREMENTS: Bone mineral densitometry was performed using the [employer]. Bone mineral density as measured about the Lumbar spine is: ----- L1-L4(G/cm2): 0.865 T Score Values are as follows: ----- L1: -3.0 ----- L2: -3.0 ----- L3: -2.6 ----- L4: -2.4 ----- L1-L4: -2.6 Z Score Values are as follows: ----- L1: -0.8 ----- L2: -0.8 ----- L3: -0.4 ----- L4: -0.2 ----- L1-L4: -0.5 Baseline Study Bone mineral density about the R hip (g/cm2): 0.596 Bone mineral density about the L hip (g/cm2): 0.634 T Score values are as follows: -----R Neck: -2.8 -----L Neck: -2.9 -----R Total: -3.3 -----L Total: -3.0 Z Score values are as follows: -----R Neck: -0.5 -----L Neck: -0.6 -----R Total: -1.1 -----L Total: -0.8 Baseline Study FRAX%s: The graph provided illustrates a 22.5% chance for a major osteoporotic fx and a 12.7% chance for the hips probability for fx in 10 years time. IMPRESSION: Osteoporosis (T Score less than -2.5). There is increased fracture risk and therapy is usually indicated based on age. Re-Screen 1-2 years. NOTE: T-SCORE=SD OF THE YOUNG ADULT MEAN.
== END | disposition home or self-care (01) ==
LOC: RADBDWWP 09:48
PROVIDERS: ATTEND Family Medicine
DX: M81.0 Age-related osteoporosis without current pathological fracture (principal); M85.89 Other specified disorders of bone density and structure, multiple sites; Z85.528 Personal history of other malignant neoplasm of kidney
CPT/HCPCS: 77080

== ENCOUNTER → 2023-02-24 | Outpatient (CLI) | payer MEDICARE ==
--- NOTE | 2023-02-24 14:45 | CT ---
EXAMINATION TYPE: CT abdomen pelvis wo con CT DLP: 460 mGycm, Automated exposure control for dose reduction was used. DATE OF EXAM: 02/24/2023 2:15 PM COMPARISON: CT abdomen pelvis most recent from 01/23/2021. CLINICAL INDICATION:Female, 77 years old with history of C64.1; Renal cancer, right TECHNIQUE: Axial CT of the abdomen and pelvis. Sagittal and coronal reformats were created on a [employer] workstation. Contrast used: (none if empty) Oral contrast used: without Oral Contrast (none if empty) FINDINGS: LOWER CHEST: Unremarkable ABDOMEN LIVER: Unremarkable GALLBLADDER AND BILE DUCTS: Unremarkable. PANCREAS: Unremarkable. SPLEEN: Unremarkable. ADRENAL GLANDS: Unremarkable. KIDNEYS AND URETERS: The right kidney is surgically absent. Multiple surgical clips are present. Ther e is no evidence of soft tissue mass. No lymphadenopathy. No evidence of left hydronephrosis. No obst ructive calculi. PELVIS BLADDER: Unremarkable REPRODUCTIVE: Unremarkable. ABDOMEN & PELVIS STOMACH AND BOWEL: No evidence of bowel obstruction. Appendix is normal. PERITONEUM/RETROPERITONEUM: No evidence of pneumoperitoneum or free fluid. VASCULATURE: No evidence of aortic aneurysm. MUSCULOSKELETAL: No acute osseous abnormalities LYMPH NODES: No gross evidence for lymphadenopathy. SOFT TISSUE/ABDOMINAL WALL: Fat-containing buccal hernia. IMPRESSION: Post nephrectomy changes are stable. No evidence recurrence or lymphadenopathy.
== END | disposition home or self-care (01) ==
LOC: RADCTMAIN 13:55
PROVIDERS: ATTEND Urology
DX: C64.1 Malignant neoplasm of right kidney, except renal pelvis (principal); Z90.5 Acquired absence of kidney
CPT/HCPCS: 74176

== ENCOUNTER → 2024-02-17 | Outpatient (CLI) | payer MEDICARE ==
--- NOTE | 2024-03-08 14:44 | MM ---
Reason for Exam: Screening (asymptomatic). Last mammogram was performed 1 year(s) and 1 month(s) ago. Patient History: Menarche at age 14. First Full-Term at age 19. Hysterectomy at age 29. Other cancer, age 73. Risk Values: Juliana 5 year model risk: 1.4%. NCI Lifetime model risk: 2.3%. Prior Study Comparison: 12/25/2018 Bilateral Screening Mammogram, [facility]. 04/03/2021 Bilateral Screening Mammogram, [facility]. 02/03/2023 Bilateral MG 3D screening mammo w/cad, [facility]. Tissue Density: The breasts are heterogeneously dense, which may obscure small masses. Findings: Analyzed By CAD. Right breast: There is no suspicious group of microcalcifications or new suspicious mass. Left breast: There is no suspicious group of microcalcifications or new suspicious mass. Overall Assessment: Negative, BI-RAD 1 Management: Screening Mammogram of both breasts in [address] [facility] will attempt to contact patient to return for supplemental views and ultrasound if indicated. Patient should continue monthly self-breast exams. A clinical breast exam by your physician is recommended on an annual basis. This exam should not preclude additional follow-up of suspicious palpable abnormalities. Note on Juliana scores and lifetime risk: 1. A Juliana score greater than 3% is considered moderate risk. If this is the case, consider specialist referral to assess eligibility for a risk reducing agent. 2. If overall lifetime risk for the development of breast cancer is 20% or higher, the patient may qualify for future screening with alternating mammogram and breast MRI. Electronically signed and approved by: Evaristo Gregg DO
== END | disposition home or self-care (01) ==
LOC: RADMAMWWP 12:00
PROVIDERS: ATTEND Family Medicine
DX: Z12.31 Encounter for screening mammogram for malignant neoplasm of breast (principal); R92.333 Mammographic heterogeneous density, bilateral breasts
CPT/HCPCS: 77063; 77067